=== PATIENT | male | born 1945 | race Caucasian/White ===

== ENCOUNTER 2017-11-07 07:50 | Day surgery (SDC) | payer OTHER ==
[2017-11-07] MEDS ORDERED: NA CHLORIDE 0.9% 1,000 ML ONE (08:06)
[2017-11-07] MEDS ORDERED: LIDOCAINE 1% MPF 5 ML VIAL ONE (09:36)
[2017-11-07] MEDS ORDERED: PROPOFOL 200 MG/20 ML VIAL IV ONE ×2 (09:36)
[2017-11-07 10:26] VITALS: BP 124/62; TEMP 97.2; O2SAT 97
--- NOTE | 2017-11-07 11:01 | ENDO RPT ---
[address], [address] COLONOSCOPY PROCEDURE REPORT EXAM DATE: 11/07/2017 PATIENT NAME: Jc Yang MR #: [id number] BIRTHDATE: 1945 ATTENDING: Jagdish Auguste Dr STATUS: outpatient RECYCLING OR RUBBISH COLLECTOR: Saida Nick and Mariza Castaneda RN INDICATIONS: The patient is a 72 yr old Male here for a colonoscopy due to personal history of colon polyps PROCEDURE PERFORMED: Colonoscopy with snare polypectomy and Colon w/ endoclip MEDICATIONS: Per Anesthesia. ESTIMATED BLOOD LOSS: None CONSENT: The patient understands the risks and benefits of the procedure and understands that these risks include, but are not limited to: sedation, allergic reaction, infection, perforation and/or bleeding. Alternative means of evaluation and treatment include, among others: physical exam, x-rays, and/or surgical intervention. The patient elects to proceed with this endoscopic procedure. DESCRIPTION OF PROCEDURE: During intra-op preparation period all mechanical medical equipment was checked for proper function. Hand hygiene and appropriate measures for infection prevention was taken. Procedure, possible complications, alternatives including, but not limited to possibility of bleeding, perforation, tear, infection, sepsis, need for surgery, need for blood transfusion, were explained to the patient. After the risks, benefits and alternatives of the procedure were thoroughly explained, Informed consent was verified, confirmed and timeout was successfully executed by the treatment team. The patient was placed in the left lateral position. A digital rectal exam was performed and revealed several skin tags. After appropriate level of anesthesia, the scope was passed. The EC-[id number] ([id number]) endoscope was introduced through the anus and advanced to the cecum. The quality of the prep was fair. The instrument was then slowly withdrawn as the colon was fully examined. Scope withdrawal time was 8 minutes. COLON FINDINGS: A sessile polyp measuring 1.1 cm in size was found at the cecum. A polypectomy was performed using snare cautery. The wound at the site was closed by placing hemoclips. One (1) placement was made. There was no blood loss from maneuver. One (1) placement was made. There was no blood loss from maneuver. Mild diverticulosis was noted in the sigmoid colon. Retroflexed views revealed medium hemorrhoids. The scope was then completely withdrawn from the patient and the procedure terminated. ADVERSE EVENTS: There were no complications. IMPRESSIONS: 1. Sessile polyp measuring 1.1 cm in size at the cecum; polypectomy was performed using snare cautery; the wound at the site was closed by placing hemoclips 2. Mild diverticulosis in the sigmoid colon 3. Intubation to cecum RECOMMENDATIONS: 1. await biopsy results 2. avoid NSAIDS for 2 weeks RECALL: Return in 1 year(s) for Colonoscopy. Jagdish Auguste Dr eSigned: Jagdish Auguste Dr 11/07/2017 10:00 AM cc: Theo Webb CPT CODES: ICD9 CODES: 1. 455.9 Residual hemorrhoidal skin tags 2. 211.3 Benign neoplasm of colon PATIENT NAME: Jc Yang MR#: [id number]
== END 2017-11-07 10:35 | disposition home or self-care (01) ==
LOC: OR 07:50
PROVIDERS: ATTEND Internal Medicine Gastroenterology
PROC: 0DBH8ZX Excision of Cecum, Via Natural or Artificial Opening Endoscopic, Diagnostic (ICD-10-PCS; principal; 2017-11-07 10:00)
DX: Z09 Encounter for follow-up examination after completed treatment for conditions other than malignant neoplasm (principal); Z86.010 Personal history of colon polyps; E11.9 Type 2 diabetes mellitus without complications; E78.5 Hyperlipidemia, unspecified; I10 Essential (primary) hypertension; Z88.1 Allergy status to other antibiotic agents; Z79.84 Long term (current) use of oral hypoglycemic drugs; K21.9 Gastro-esophageal reflux disease without esophagitis; K59.00 Constipation, unspecified; K44.9 Diaphragmatic hernia without obstruction or gangrene; Z80.0 Family history of malignant neoplasm of digestive organs; G47.33 Obstructive sleep apnea (adult) (pediatric); K57.30 Diverticulosis of large intestine without perforation or abscess without bleeding; K64.9 Unspecified hemorrhoids
CPT/HCPCS: 45385; 82962; 88305; J7030

== ENCOUNTER 2017-11-11 13:47 | Emergency (ER) | payer OTHER ==
--- NOTE | 2017-11-11 15:50 | ER ---
Nurse's Notes [facility] Name: Jc Yang Age: 72 yrs Sex: Male : 1945 Arrival Date: 11/11/2017 Time: 13:51 Bed Waiting Private MD: Theo Webb V Diagnosis: Presentation: 11/11 14:26 Presenting complaint: Patient states: " I cut my thumb with my pocket knife yesterday ph when I was trying to get the nozzle off of the garden hose. I think it's fine but I have had sepsis before and my wanted me to get checked out." Small laceration noted to pad of L thumb, no bleeding redness, drainage, or swelling noted, pt denies pain or fever. Neosporin and bandaid placed to L thumb in triage. Transition of care: patient was not received from another setting of care. Complicating Factors: There are no complicating factors for this patient. Onset of symptoms was November 10, 2017. Risk Assessment: Do you want to hurt yourself or someone else? Patient reports no desire to harm self or others. Initial Sepsis Screen: Does the patient meet any 2 criteria? No. Patient's initial sepsis screen is negative. Does the patient have a suspected source of infection? No. Patient's initial sepsis screen is negative. Care prior to arrival: None. 14:26 Method Of Arrival: Ambulatory 14:26 Acuity: JAROCHO 5 ph Triage Assessment: 14:31 General: Appears in no apparent distress. comfortable, well groomed, Behavior is calm, ph cooperative, appropriate for age. Pain: Denies pain. Neuro: Level of Consciousness is awake, alert, obeys commands, Oriented to person, place, time, situation. Respiratory: Airway is patent Respiratory effort is even, unlabored. GI: No signs and/or symptoms were reported involving the gastrointestinal system. Patient currently denies diarrhea, nausea, vomiting. Derm: Skin is healthy with good turgor, Skin is pink, warm \\T\\ dry. Musculoskeletal: Circulation, motion, and sensation intact. Range of motion: intact in all extremities, Swelling absent. Injury Description: Laceration sustained to palmar aspect of distal phalanx of left thumb is clean, superficial, 0.5 to 2.5 cm long, not bleeding, was sustained 1 day ago. Historical: - Allergies: 14:30 Augmentin; ph - PMHx: 14:30 Diabetes - NIDDM; GERD; High Cholesterol; Hypertension; restless leg syndrome; Sleep ph Apnea; - PSHx: 14:30 Appendectomy; Cataract; Wrist surgery; Heart Catherization; I \\T\\ D Right great toe; left ph rotator cuff; - Immunization history:: Adult Immunizations up to date. - Social history:: Smoking status: Patient/guardian denies using tobacco. - Ebola Screening: : No symptoms or risks identified at this time. Vital Signs: 14:30 BP 143 / 79; Pulse 81; Resp 18; Temp 98.2(O); Pulse Ox 98% on R/A; Weight 90.72 kg; ph Height 5 ft. 11 in. (180.34 cm); Pain 0/10; 14:30 Body Mass Index 27.89 (90.72 kg, 180.34 cm) ph ED Course: 13:51 Patient arrived in ED. sb2 13:51 Theo Webb MD is Private Physician. sb2 14:29 Triage completed. ph 14:30 Arm band placed on Patient placed in waiting room, Patient notified of wait time. ph 15:30 Patient's name was called from ER lobby. No response. ph 15:49 Patient's name was called from ER lobby. No response. Unable to locate patient. Will ph disposition as left without being seen by a provider. 15:50 Theo Webb MD is Attending Physician. ph Administered Medications: No medications were administered Outcome: 15:50 Patient left the ED. ph Signatures: Rona Morrison RN RN ph Dayan Lovell sb2
[2017-11-11 15:56] VITALS: BP 143/79; TEMP 98.2; O2SAT 98
== END 2017-11-11 15:50 | disposition left against medical advice (07) ==
LOC: ER 13:47
DX: Z53.21 Procedure and treatment not carried out due to patient leaving prior to being seen by health care provider (principal)
CPT/HCPCS: 99281